=== PATIENT | male | born 1975 | race Caucasian/White ===

== ENCOUNTER → 2024-03-16 09:07 | Outpatient (BNVA) | payer OTHER, SELFPAY | PROVIDERS: PCP Internal Medicine; Visit Provider Physician Assistant | DX: S61.211A Laceration without foreign body of left index finger without damage to nail, initial encounter (principal); W26.9XXA Contact with unspecified sharp object(s), initial encounter | CPT/HCPCS: 12001; 99204 ==

== ENCOUNTER → 2024-03-19 14:47 | Outpatient (BNVA) | payer OTHER, SELFPAY | PROVIDERS: PCP Internal Medicine; Visit Provider Physician Assistant Medical | DX: S61.211A Laceration without foreign body of left index finger without damage to nail, initial encounter (principal); W26.9XXA Contact with unspecified sharp object(s), initial encounter | CPT/HCPCS: 99213 ==

== ENCOUNTER → 2024-03-26 14:52 | Outpatient (BNVA) | payer OTHER, SELFPAY | PROVIDERS: PCP Internal Medicine; Visit Provider Physician Assistant Medical | DX: Z48.02 Encounter for removal of sutures (principal); S61.211D Laceration without foreign body of left index finger without damage to nail, subsequent encounter; W26.9XXD Contact with unspecified sharp object(s), subsequent encounter | CPT/HCPCS: 99212; 99213 ==